=== PATIENT | female | born 1965 | race Caucasian/White ===

== ENCOUNTER → 2016-12-15 | Outpatient (CLI) | payer BC | LOC: FIMAGING 14:23 | PROVIDERS: ATTEND Nurse Practitioner Family | DX: D25.1 Intramural leiomyoma of uterus (principal); N92.6 Irregular menstruation, unspecified; Z79.890 Hormone replacement therapy ==

== ENCOUNTER → 2018-09-22 | Outpatient (CLI) | payer BC | LOC: FIMAGING 15:50 | PROVIDERS: ATTEND Family Medicine | DX: Z12.31 Encounter for screening mammogram for malignant neoplasm of breast (principal); Z80.3 Family history of malignant neoplasm of breast ==